=== PATIENT | female | born 1995 | race Caucasian/White ===

== ENCOUNTER 2020-05-10 08:50 | Observation (INO) | payer OTHER ==
[~2020-05-10] VITALS: Ht 154.9 cm; Wt 69.9 kg
[2020-05-10 10:40] VITALS: BP 122/71
== END 2020-05-10 13:40 | disposition home or self-care (01) ==
LOC: MLD 08:50
PROVIDERS: ADMIT Obstetrics & Gynecology; ATTEND Obstetrics & Gynecology
DX: O62.9 Abnormality of forces of labor, unspecified (principal); Z20.828 Contact with and (suspected) exposure to other viral communicable diseases; Z3A.38 38 weeks gestation of pregnancy
CPT/HCPCS: 59025; 76805; 81000; 87426; G0378; Q0092

== ENCOUNTER 2020-05-13 07:12 | Inpatient (IN) | payer OTHER ==
[~2020-05-13] VITALS: Ht 154.9 cm; Wt 70.3 kg
[2020-05-13] MEDS ORDERED: CITRIC ACID/SODIUM CITRATE 30 ML UDC PO SCH (08:15)
[2020-05-13] MEDS ORDERED: LACTATED RINGERS 1,000 ML IV SCH (08:15)
--- NOTE | 2020-05-13 08:29 | NUR ---
PATIENT HAS BEEN SCREENED AND CATEGORIZED LOW NUTRITION RISK. PATIENT WILL BE SEEN WITHIN 7 DAYS OF ADMISSION. 05/19/[address]
[2020-05-13 10:07] VITALS: BP 112/68
[2020-05-13 10:33] LABS: APPEARANCE,URINE CLEAR (CLEAR); BILIRUBIN,URINE NEGATIVE (NEGATIVE); BLOOD, URINE NEGATIVE (NEGATIVE); COLOR,URINE YELLOW (YELLOW); LEUKOCYTE ESTERASE ,URINE NEGATIVE (NEGATIVE); NITRITE, URINE NEGATIVE (NEGATIVE); UGLUCOSE NEGATIVE (NEGATIVE)
[2020-05-13 10:37] LABS: BASOPHILS % (AUTO) 0.2 % (0.0-2.0); EOSINOPHILS % (AUTO) 0.3 % (0.0-4.0); HEMATOCRIT 39.1 % (36-48); HEMOGLOBIN 12.9 g/dL (12.0-16.0); LYMPHOCYTES # (AUTO) 2.2 K/uL (2.5-16.5); LYMPHOCYTES % (AUTO) 26.3 % (20.5-51.1); MEAN CORPUSCULAR HEMOGLOBIN 29 pg (27-31); MEAN CORPUSCULAR HGB CONC 33 g/dL (33-37); MONOCYTES # (AUTO) 0.7 K/uL (0.8-1.0); NEUTROPHILS # (AUTO) 5.3 K/uL (1.8-7.7); NEUTROPHILS % (AUTO) 65.2 % (42.2-75.2); PLATELET COUNT (AUTO) 250 K/uL (140-450); RED BLOOD CELL COUNT(AUTO) 4.44 MIL/uL (4.20-5.40); RED CELL DISTRIBUTION WIDTH 14.3 % (11.6-13.7); WHITE BLOOD COUNT (AUTO) 8.2 K/uL (4.8-10.8)
[2020-05-13 10:52] LABS: ALBUMIN 2.6 g/dL (3.4-5.0); ANION GAP 13.3 (8-16); CARBON DIOXIDE 22.7 mmol/L (21-32); CREATININE 0.5 mg/dL (0.6-1.3); TOTAL BILIRUBIN 0.3 mg/dL (0.0-1.0)
[2020-05-13] MEDS ORDERED: MORPHINE PRES FREE 10 MG/10 ML AMP IV ONE (12:26)
[2020-05-13] MEDS ORDERED: ONDANSETRON 4 MG/2 ML VIAL ONE (12:30)
[2020-05-13] MEDS ORDERED: diphenhydrAMINE 50 MG/ML VIAL IVP PRN (12:55)
[2020-05-13] MEDS ORDERED: OXYTOCIN 20 UNITS in LACTATED RINGERS 1,000 ML IV SCH (12:55)
[2020-05-13] MEDS ORDERED: KETOROLAC 30 MG/ML VIAL IVP PRN (12:55)
[2020-05-13] MEDS ORDERED: NALOXONE 0.4 MG/ML VIAL IVP PRN ×2 (12:55)
[2020-05-13] MEDS ORDERED: ONDANSETRON 4 MG/2 ML VIAL IVP PRN (12:55)
[2020-05-13] MEDS ORDERED: MEASLES, MUMPS, AND RUBELLA 1 VIAL SQVAC PRN (19:15)
[2020-05-13] MEDS ORDERED: HYDROmorphone 1 MG/ML AMP IVP PRN (19:15)
[2020-05-13] MEDS ORDERED: OXYTOCIN 20 UNITS/LR PREMIX 1,000 ML IV ONE (21:05)
[2020-05-13] MEDS: OXYTOCIN 20 UNITS in LACTATED RINGERS 1,000 ML IV SCH (21:22)
[2020-05-14] MEDS ORDERED: OXYTOCIN 20 UNITS/LR PREMIX 1,000 ML IV ONE (05:15)
[2020-05-14] MEDS: OXYTOCIN 20 UNITS in LACTATED RINGERS 1,000 ML IV SCH (05:22)
[2020-05-14 10:17] LABS: BASOPHILS % (AUTO) 0.3 % (0.0-2.0); EOSINOPHILS % (AUTO) 0.1 % (0.0-4.0); HEMATOCRIT 37.6 % (36-48); HEMOGLOBIN 12.2 g/dL (12.0-16.0); LYMPHOCYTES # (AUTO) 1.5 K/uL (2.5-16.5); LYMPHOCYTES % (AUTO) 11.9 % (20.5-51.1); MEAN CORPUSCULAR HEMOGLOBIN 29 pg (27-31); MEAN CORPUSCULAR HGB CONC 33 g/dL (33-37); MONOCYTES # (AUTO) 0.5 K/uL (0.8-1.0); NEUTROPHILS # (AUTO) 10.7 K/uL (1.8-7.7); NEUTROPHILS % (AUTO) 83.7 % (42.2-75.2); PLATELET COUNT (AUTO) 237 K/uL (140-450); RED BLOOD CELL COUNT(AUTO) 4.27 MIL/uL (4.20-5.40); RED CELL DISTRIBUTION WIDTH 13.9 % (11.6-13.7); WHITE BLOOD COUNT (AUTO) 12.7 K/uL (4.8-10.8)
[2020-05-14] MEDS: KETOROLAC 30 MG/ML VIAL IVP PRN ×2 (11:44→23:05)
[2020-05-14] MEDS ORDERED: ACETAMINOPHEN 325 MG TAB PO PRN (22:00)
[2020-05-15] MEDS: DOCUSATE SODIUM 100 MG GELCAP PO SCH (08:47)
[2020-05-15] MEDS: SIMETHICONE 80 MG TAB.CHEW PO SCH ×3 (08:47→18:04)
[2020-05-15] MEDS: IBUPROFEN 600 MG TAB PO PRN ×2 (08:47→23:08)
[2020-05-15] MEDS: bisacodyL 5 MG TABEC PO SCH (08:47)
[2020-05-15] MEDS ORDERED: SODIUM PHOSPHATE 118 ML ENEM RC PRN (09:00)
[2020-05-16] MEDS: SIMETHICONE 80 MG TAB.CHEW PO SCH ×3 (07:56→18:12)
[2020-05-16] MEDS: IBUPROFEN 600 MG TAB PO PRN ×2 (07:56→21:21)
[2020-05-16] MEDS: DOCUSATE SODIUM 100 MG GELCAP PO SCH (09:00)
[2020-05-16] MEDS: bisacodyL 5 MG TABEC PO SCH (09:00)
[2020-05-17] MEDS: DOCUSATE SODIUM 100 MG GELCAP PO SCH (09:00)
[2020-05-17] MEDS: bisacodyL 5 MG TABEC PO SCH (09:00)
[2020-05-17] MEDS: SIMETHICONE 80 MG TAB.CHEW PO SCH ×2 (09:00→12:24)
== END 2020-05-17 14:00 | disposition home or self-care (01) | DRG 540 ==
LOC: MFCC 07:12 → MLD 07:24 → MFCC 15:50
PROVIDERS: ADMIT Obstetrics & Gynecology; ATTEND Obstetrics & Gynecology
PROC: 10D00Z1 Extraction of Products of Conception, Low, Open Approach (ICD-10-PCS; principal; 2020-05-13)
DX: O34.211 Maternal care for low transverse scar from previous cesarean delivery (principal); Z37.0 Single live birth; Z3A.38 38 weeks gestation of pregnancy
CPT/HCPCS: 36415; 51702; 80053; 81003; 85025; 86592; 86886; 86900; 86901; 87086; J0690; J1885; J2270; J2405; J2590; J7060; J7120

== ENCOUNTER 2021-09-23 11:59 | Observation (INO) | payer OTHER ==
[~2021-09-23] VITALS: Ht 154.9 cm; Wt 70.3 kg
[2021-09-23] MEDS ORDERED: PRETAB PO (13:14)
== END 2021-09-23 16:00 | disposition home or self-care (01) ==
LOC: MLD 11:59
PROVIDERS: ADMIT Obstetrics & Gynecology; ATTEND Obstetrics & Gynecology
DX: O99.891 Other specified diseases and conditions complicating pregnancy (principal); M25.59 Pain in other specified joint; O26.893 Other specified pregnancy related conditions, third trimester; R10.30 Lower abdominal pain, unspecified; Z3A.37 37 weeks gestation of pregnancy
CPT/HCPCS: 59025; 76805; G0378; Q0092

== ENCOUNTER 2021-10-03 10:47 | Observation (INO) | payer OTHER, SELFPAY ==
[~2021-10-03] VITALS: Ht 154.9 cm; Wt 70.8 kg
[~2021-10-03 10:47] MED LIST: PRETAB PO
[2021-10-03 11:58] VITALS: BP 109/71
== END 2021-10-03 14:50 | disposition home or self-care (01) ==
LOC: MLD 10:47
PROVIDERS: ADMIT Obstetrics & Gynecology; ATTEND Obstetrics & Gynecology
DX: O47.1 False labor at or after 37 completed weeks of gestation (principal); Z20.822 Contact with and (suspected) exposure to COVID-19; Z3A.38 38 weeks gestation of pregnancy
CPT/HCPCS: 59025; 76805; 81000; 87426; G0378; Q0092

== ENCOUNTER 2021-10-06 07:18 | Inpatient (IN) | payer OTHER, SELFPAY ==
[~2021-10-06] VITALS: Ht 154.9 cm; Wt 71.2 kg
[2021-10-06] MEDS ORDERED: CITRIC ACID/SODIUM CITRATE 30 ML UDC PO SCH (07:35)
[2021-10-06] MEDS: LACTATED RINGERS 1,000 ML IV SCH ×2 (08:00→09:17)
[2021-10-06 09:06] LABS: BASOPHILS % (AUTO) 0.2 % (0.0-2.0); EOSINOPHILS % (AUTO) 0.5 % (0.0-4.0); HEMATOCRIT 36.5 % (36-48); HEMOGLOBIN 11.7 g/dL (12.0-16.0); LYMPHOCYTES # (AUTO) 2.3 K/uL (2.5-16.5); MEAN CORPUSCULAR HEMOGLOBIN 26 pg (27-31); MEAN CORPUSCULAR HGB CONC 32 g/dL (33-37); MEAN CORPUSCULAR VOLUME 82.4 fL (80-94); MONOCYTES # (AUTO) 0.6 K/uL (0.8-1.0); MONOCYTES % (AUTO) 7.5 % (1.7-9.3); NEUTROPHILS # (AUTO) 5.4 K/uL (1.8-7.7); NEUTROPHILS % (AUTO) 63.8 % (42.2-75.2); PLATELET COUNT (AUTO) 250 K/uL (140-450); RED BLOOD CELL COUNT(AUTO) 4.43 MIL/uL (4.20-5.40); RED CELL DISTRIBUTION WIDTH 14.8 % (11.6-13.7); WHITE BLOOD COUNT (AUTO) 8.4 K/uL (4.8-10.8)
[2021-10-06 09:35] LABS: APPEARANCE,URINE CLEAR (CLEAR); BILIRUBIN,URINE NEGATIVE (NEGATIVE); BLOOD, URINE NEGATIVE (NEGATIVE); COLOR,URINE YELLOW (YELLOW); LEUKOCYTE ESTERASE ,URINE NEGATIVE (NEGATIVE); NITRITE, URINE NEGATIVE (NEGATIVE); UGLUCOSE NEGATIVE (NEGATIVE)
[2021-10-06 09:36] VITALS: BP 111/73
[2021-10-06 09:47] LABS: ALBUMIN 2.6 g/dL (3.4-5.0); ANION GAP 14.4 (8-16); CARBON DIOXIDE 22.4 mmol/L (21-32); CREATININE 0.4 mg/dL (0.6-1.3); POTASSIUM 3.8 mmol/L (3.5-5.1); TOTAL BILIRUBIN 0.3 mg/dL (0.0-1.0)
[2021-10-06 10:19] LABS: PROTHROMBIN TIME 9.1 secs (10.8-13.4)
--- NOTE | 2021-10-06 11:33 | NUR ---
PATIENT HAS BEEN SCREENED AND CATEGORIZED LOW NUTRITION RISK. PATIENT WILL BE SEEN WITHIN 7 DAYS OF ADMISSION. 10/12/[address]
[2021-10-06] MEDS ORDERED: MIDAZOLAM 2 MG/2 ML VIAL ONE (11:52)
[2021-10-06] MEDS ORDERED: MORPHINE PRES FREE 10 MG/10 ML AMP IV ONE (11:52)
[2021-10-06] MEDS ORDERED: HYDROmorphone 1 MG/ML AMP IVP PRN ×2 (12:50→15:50)
[2021-10-06] MEDS ORDERED: NALBUPHINE 10 MG/ML AMP IVP PRN (12:50)
[2021-10-06] MEDS ORDERED: diphenhydrAMINE 50 MG/ML VIAL IVP PRN ×2 (12:50)
[2021-10-06] MEDS ORDERED: ONDANSETRON 4 MG/2 ML VIAL IVP PRN ×2 (12:50)
[2021-10-06] MEDS ORDERED: NALOXONE 0.4 MG/ML VIAL IVP PRN ×3 (12:50)
[2021-10-06] MEDS ORDERED: MEPERIDINE 25 MG/ML SYR IVP PRN (12:50)
[2021-10-06] MEDS: OXYTOCIN 20 UNITS/LR PREMIX 1,000 ML IV ONE ×2 (15:36→16:00)
[2021-10-06] MEDS ORDERED: MEASLES, MUMPS, AND RUBELLA 1 VIAL SQVAC ONE (15:50)
[2021-10-06] MEDS ORDERED: OXYTOCIN 20 UNITS in LACTATED RINGERS 1,000 ML IV SCH (15:50)
[2021-10-06] MEDS ORDERED: KETOROLAC 30 MG/ML VIAL IVP PRN (15:50)
[2021-10-06] MEDS ORDERED: MEASLES, MUMPS, AND RUBELLA 1 VIAL SQVAC PRN (16:05)
[2021-10-06] MEDS: KETOROLAC 30 MG/ML VIAL IM/IVP SCH (19:01)
[2021-10-07] MEDS: KETOROLAC 30 MG/ML VIAL IM/IVP SCH ×2 (00:54→06:42)
[2021-10-07] MEDS ORDERED: OXYTOCIN 20 UNITS/LR PREMIX 1,000 ML IV ONE (04:16)
[2021-10-07 10:12] LABS: BASOPHILS % (AUTO) 0.4 % (0.0-2.0); EOSINOPHILS # (AUTO) 0.1 K/uL (0-0.4); EOSINOPHILS % (AUTO) 0.7 % (0.0-4.0); HEMOGLOBIN 10.9 g/dL (12.0-16.0); LYMPHOCYTES # (AUTO) 1.6 K/uL (2.5-16.5); MEAN CORPUSCULAR HEMOGLOBIN 26 pg (27-31); MEAN CORPUSCULAR HGB CONC 32 g/dL (33-37); MEAN CORPUSCULAR VOLUME 82.5 fL (80-94); MONOCYTES # (AUTO) 0.6 K/uL (0.8-1.0); MONOCYTES % (AUTO) 5.4 % (1.7-9.3); NEUTROPHILS # (AUTO) 9.2 K/uL (1.8-7.7); NEUTROPHILS % (AUTO) 79.5 % (42.2-75.2); PLATELET COUNT (AUTO) 239 K/uL (140-450); RED BLOOD CELL COUNT(AUTO) 4.12 MIL/uL (4.20-5.40); RED CELL DISTRIBUTION WIDTH 15.1 % (11.6-13.7); WHITE BLOOD COUNT (AUTO) 11.6 K/uL (4.8-10.8)
[2021-10-07] MEDS ORDERED: ACETAMINOPHEN 325 MG TAB PO PRN (22:00)
[2021-10-08] MEDS ORDERED: SODIUM PHOSPHATE 118 ML ENEM RC PRN (09:00)
[2021-10-08] MEDS: bisacodyL 5 MG TABEC PO SCH (09:06)
[2021-10-08] MEDS: SIMETHICONE 80 MG TAB.CHEW PO SCH ×2 (09:06→12:34)
[2021-10-08] MEDS: DOCUSATE SODIUM 100 MG GELCAP PO SCH (09:06)
[2021-10-08] MEDS: IBUPROFEN 600 MG TAB PO PRN ×2 (12:35→21:41)
[2021-10-09] MEDS: DOCUSATE SODIUM 100 MG GELCAP PO SCH (08:43)
[2021-10-09] MEDS: bisacodyL 5 MG TABEC PO SCH (08:44)
[2021-10-09] MEDS: SIMETHICONE 80 MG TAB.CHEW PO SCH ×3 (08:45→17:00)
[2021-10-09] MEDS: IBUPROFEN 600 MG TAB PO PRN (12:06)
[2021-10-10] MEDS: IBUPROFEN 600 MG TAB PO PRN ×2 (01:21→11:21)
[2021-10-10] MEDS: DOCUSATE SODIUM 100 MG GELCAP PO SCH (09:48)
[2021-10-10] MEDS: SIMETHICONE 80 MG TAB.CHEW PO SCH (09:54)
[2021-10-10] MEDS: bisacodyL 5 MG TABEC PO SCH (10:02)
== END 2021-10-10 14:50 | disposition home or self-care (01) | DRG 539 ==
LOC: MLD 07:18 → MFCC 12:53
PROVIDERS: ADMIT Obstetrics & Gynecology; ATTEND Obstetrics & Gynecology
PROC: 0UB70ZZ Excision of Bilateral Fallopian Tubes, Open Approach (ICD-10-PCS; 2021-10-06)
PROC: 10D00Z1 Extraction of Products of Conception, Low, Open Approach (ICD-10-PCS; principal; 2021-10-06 12:00)
DX: O34.211 Maternal care for low transverse scar from previous cesarean delivery (principal); Z30.2 Encounter for sterilization; Z37.0 Single live birth; Z3A.38 38 weeks gestation of pregnancy
CPT/HCPCS: 36415; 51702; 80053; 81003; 85025; 85610; 85730; 86592; 86886; 86900; 86901; 87081; 87086; J0690; J1200; J1885; J2250; J2270; J2405; J2590; J7060; J7120